=== PATIENT | female | born 1990 | race American Indian/Alaskan Native ===

== ENCOUNTER 2018-11-17 17:36 | Outpatient (CLI) | payer MEDICAID ==
[2018-11-17 17:52] VITALS: BP 121/71
== END 2018-11-17 18:56 | disposition home or self-care (01) ==
LOC: TRG 17:36
PROVIDERS: ATTEND Obstetrics & Gynecology
DX: O47.1 False labor at or after 37 completed weeks of gestation (principal); Z3A.38 38 weeks gestation of pregnancy
CPT/HCPCS: 59025

== ENCOUNTER 2018-11-23 21:45 | Inpatient (IN) | payer MEDICAID ==
[2018-11-23] MEDS ORDERED: AMPICILLIN/NS 2 GM/100 ML 2 GM/100 ML BAG IV ONE (23:38)
[2018-11-23] MEDS ORDERED: BRETHINE SUB-Q PRN (23:38)
[2018-11-23] MEDS ORDERED: STADOL IV PRN (23:38)
[2018-11-23] MEDS ORDERED: SUBLIMAZE IV PRN (23:38)
[2018-11-23] MEDS ORDERED: XYLOCAINE 2% INFILTRATI ONE (23:38)
[2018-11-23] MEDS ORDERED: BRETHINE IVP PRN (23:38)
[2018-11-23] MEDS ORDERED: MINERAL OIL PO PRN (23:38)
[2018-11-23] MEDS ORDERED: NARCAN 0.4 MG/1 ML IV PRN (23:38)
[2018-11-23] MEDS ORDERED: LACTATED RINGERS 1,000 ML ONE (23:38)
[2018-11-23] MEDS ORDERED: ZOFRAN IV PRN (23:38)
[2018-11-23] MEDS ORDERED: LACTATED RINGERS 1,000 ML IV SCH (23:45)
[2018-11-23] MEDS ORDERED: PITOCin/NS 30 UNIT/500ML 30 UNITS/500 ML BAG IV SCH ×2 (23:45)
[2018-11-23] MEDS ORDERED: PITOCin/NS 20 UNIT/1000ML DRIP 20 UNITS/1,000 ML BAG IV SCH (23:45)
[2018-11-24 00:36] LABS: Hematocrit 28.7 % (30.3-42.9); Hemoglobin 9.7 gm/dl (10.1-14.3); Mean Corpuscular HGB Conc 34 % (30-34); Mean Corpuscular Volume 72 fl (79-97); Platelet Count 178 K/mm3 (140-440); Red Blood Count 3.97 M/mm3 (3.65-5.03); Red Cell Distribution Width 14.6 % (13.2-15.2)
[2018-11-24] MEDS ORDERED: AMPICILLIN/NS 1 GM/50 ML 1 GM/50 ML BAG IV SCH (03:39)
--- NOTE | 2018-11-24 08:46 | History and Physical Report ---
History of Present Illness Date of examination: 11/24/18 Date of admission: 11/23/18 21:45 Chief complaint: Pt presents for IOL for IUGR History of present illness: Pt is a 28 yo at 39.4 weeks, with IUGR. She received care with [facility] since the first trimester. Her has been complicated by IUGR, EFW 12.8%ile. She is A positive, GBS negative. AROM by Dr. Parson at 0700 and Pitocin has been titrated, now at 4. Her cervix is 3/60/-2 as of 0700 today. Past History Past Medical History: no pertinent history Past Surgical History: no surgical history Family/Genetic History: none Social history: no significant social history - Obstetrical History Expected Date of Delivery: 11/27/18 Actual Gestation: 39 Week(s) 4 Day(s) : 2 Para: 1 Hx # Term Pregnancies: 1 Number of Living Children: 1 Medications and Allergies Allergies Allergy/AdvReac Type Severity Reaction Status Date / Time No Known Allergies Allergy Verified 11/17/18 17:42 Home Medications Medication Instructions Recorded Confirmed Last Taken Type No Known Home Medications [No 11/17/18 11/17/18 Unknown History Reported Home Medications] Active Meds: Active Medications Butorphanol Tartrate (Stadol) 2 mg IV Q2H PRN PRN Reason: Pain , Severe (7-10) Ephedrine Sulfate (Ephedrine Sulfate) 10 mg IV Q2M PRN PRN Reason: Hypotension Fentanyl (Sublimaze) 100 mcg IV Q2H PRN PRN Reason: Labor Pain Oxytocin/Sodium Chloride (Pitocin/Ns 20 Unit/1000ml Drip) 20 units in 1,000 mls @ 125 mls/hr IV DIRECT THOMPSON Oxytocin/Sodium Chloride (Pitocin/Ns 30 Unit/500ml) 30 units in 500 mls @ 1 mls/hr IV TITR THOMPSON; Protocol Oxytocin/Sodium Chloride (Pitocin/Ns 30 Unit/500ml) 30 units in 500 mls @ 2 mls/hr IV TITR THOMPSON; Protocol Last Admin: 11/24/18 02:30 Dose: 2 ml/hr, 2 mls/hr Documented by: Lactated Ringer's (Lactated Ringers) 1,000 mls @ 125 mls/hr IV DIRECT THOMPSON Mineral Oil (Mineral Oil) 30 ml PO QHS PRN PRN Reason: Constipation Naloxone HCl (Narcan 0.4 Mg/1 Ml) 0.1 mg IV Q2MIN PRN PRN Reason: Res Rate </= 8 or 02 SAT < 92% Ondansetron HCl (Zofran) 4 mg IV Q8H PRN PRN Reason: Nausea And Vomiting Terbutaline Sulfate (Brethine) 0.25 mg SUB-Q ONCE PRN PRN Reason: Hyperstimulation/Hypertonicity Terbutaline Sulfate (Brethine) 0.25 mg IVP ONCE PRN PRN Reason: Hyperstimulation/Hypertonicity Review of Systems All systems: negative Gastrointestinal: abdominal pain (due to contractions) - Vital Signs Vital signs: Vital Signs Pulse BP 86 125/70 11/23/18 22:09 11/23/18 22:09 Temp Pulse Resp BP Pulse Ox 97.7 F 75 16 115/73 88 11/24/18 05:00 11/24/18 07:47 11/24/18 05:00 11/24/18 07:47 11/24/18 07:46 - Physical Exam Breasts: Positive: deferred Cardiovascular: Regular rate, Normal S1, Normal S2 Lungs: Positive: Clear to auscultation, Normal air movement Abdomen: Positive: normal appearance, soft Uterus: Positive: normal size, normal contour Extremities: Positive: normal - Obstetrical FHR: auscultation normal, category 1 Uterine Contraction Monitor Mode: External Results Result Diagrams: 11/23/18 23:08 Abnormal lab results 11/23/18 Range/Units 23:08 Hgb 9.7 L (10.1-14.3) gm/dl Hct 28.7 L (30.3-42.9) % MCV 72 L (79-97) fl MCH 24 L (28-32) pg All other labs normal. Assessment and Plan A: 1. IUGR at term 2. Membranes ruptured x1.5 hours, clear, GBS negative, afebrile 3. Cervix favorable for induction P: Continue Pitocin titration. Pt planning on epidural. Anticipate .
--- NOTE | 2018-11-24 09:03 | Anesthesia Consultation ---
Anesthesia Consult and Med Hx Date of service: 11/24/18 - Airway Anesthetic Teeth Evaluation: Good ROM Head & Neck: Adequate Mental/Hyoid Distance: Adequate Mallampati Class: Class II Intubation Access Assessment: Good - Pulmonary Exam CTA: Yes - Cardiac Exam Cardiac Exam: RRR - Pre-Operative Health Status ASA Pre-Surgery Classification: ASA2 Proposed Anesthetic Plan: Epidural - Pulmonary Hx Asthma: No COPD: No Hx Pneumonia: No - Cardiovascular System Hx Hypertension: No - Central Nervous System Hx Seizures: No Hx Psychiatric Problems: No - Endocrine Hx Renal Disease: No Hx End Stage Renal Disease: No Hx Hypothyroidism: No Hx Hyperthyroidism: No - Hematic Hx Anemia: No Hx Sickle Cell Disease: No - Other Systems Hx Alcohol Use: No
[2018-11-24] MEDS ORDERED: MARCAINE 0.25% INFILTRATI ONE ×2 (09:17→14:37)
[2018-11-24] MEDS ORDERED: NARCAN 2 MG/2 ML IV PRN (09:30)
[2018-11-24] MEDS ORDERED: fentaNYL-BUPIV 2 MCG/ML-0.125% 200 MCG/100 ML BAG EPIDURAL SCH (10:00)
--- NOTE | 2018-11-24 15:54 | Procedure Note ---
OB Delivery Note - Delivery Date of Delivery: 11/24/18 Estimated blood loss: 200cc - Vaginal Delivery presentation: vertex Delivery position: OA Intrapartum events: prolonged 2nd stage>2.5hr Delivery induction: oxytocin Delivery augmentation: rupture of membranes Delivery monitor: external FHT, external uterine Route of delivery: Delivery placenta: spontaneous Delivery cord: 3 umbilical vessels Episiotomy: none Delivery laceration: none Anesthesia: epidural Delivery comments: Maternal effort resulted in of viable female infant. Head delivered OA, restituted LOT, shoulders followed easily with gentle traction. Cord clamped and cut by FOB. Placenta followed <10 minutes after , spontaneously expressed. EBL 200mL, Pitocin administered IV after delivery of placenta. Placenta delivered [place], intact. No lacerations noted. Infant to maternal chest.
[2018-11-24] MEDS ORDERED: LANSINOH TP PRN (17:45)
[2018-11-24] MEDS ORDERED: PHENERGAN PO PRN (17:45)
[2018-11-24] MEDS ORDERED: MILK OF MAGNESIA PO PRN (17:45)
[2018-11-24] MEDS ORDERED: TUCKS PAD TP PRN (17:45)
[2018-11-24] MEDS ORDERED: TYLENOL PO PRN (17:45)
[2018-11-24] MEDS ORDERED: ZOFRAN IV PRN (17:45)
[2018-11-24] MEDS ORDERED: SODIUM CHLORIDE FLUSH SYRINGE 10 ML IV NR (17:45)
[2018-11-24] MEDS ORDERED: BENADRYL PO PRN (17:45)
[2018-11-24] MEDS ORDERED: PHENERGAN PR PRN (17:45)
[2018-11-24] MEDS ORDERED: DULCOLAX PR PRN (17:45)
[2018-11-24] MEDS: IBUPROFEN PO SCH (23:13)
[2018-11-25] MEDS: IBUPROFEN PO SCH ×5 (05:25→23:39)
[2018-11-25 06:11] LABS: Hematocrit 24.4 % (30.3-42.9); Hemoglobin 7.9 gm/dl (10.1-14.3)
--- NOTE | 2018-11-25 12:08 | Progress Note ---
Assessment and Plan A: 1. PPD1 s/p , recovering well 2. Vital signs stable 3. Iron deficiency anemia P: Initiate iron supplementation. Anticipate d/c to home tomorrow. Subjective - Subjective Interval history: Pt is PPD1 s/p of viable at 39.4 wks EGA, IOL for IUGR. is doing well. Patient reports: appetite normal, voiding normally, pain well controlled, ambulating normally [place]: doing well Objective - Vital Signs Latest vital signs: Vital Signs Temp Pulse Resp BP BP Pulse Ox 11/25/18 08:09 97.6 F 71 18 112/73 97 11/25/18 01:45 98.1 F 68 20 122/74 98 11/24/18 21:35 97.9 F 70 20 117/75 98 11/24/18 16:47 66 112/66 11/24/18 16:32 67 119/82 11/24/18 16:21 67 122/58 11/24/18 16:01 75 114/79 11/24/18 16:00 98.1 F 18 11/24/18 15:47 75 114/71 11/24/18 15:38 150 H 120/56 11/24/18 15:30 98 H 90 11/24/18 15:28 89 100 11/24/18 15:23 97 H 100 11/24/18 15:21 97 H 92 11/24/18 15:18 101 H 100 11/24/18 15:16 89 92 11/24/18 15:13 93 H 100 11/24/18 15:10 66 121/78 11/24/18 15:08 75 100 11/24/18 15:05 73 120/79 11/24/18 15:03 76 100 11/24/18 15:01 70 121/68 11/24/18 14:58 69 100 11/24/18 14:55 68 18 125/75 11/24/18 14:53 69 100 11/24/18 14:51 68 118/78 11/24/18 14:48 91 H 100 11/24/18 14:46 75 119/72 11/24/18 14:43 68 99 11/24/18 14:39 88 113/69 94 11/24/18 14:38 93 11/24/18 14:33 72 117/73 98 11/24/18 14:28 71 98 11/24/18 14:23 77 98 11/24/18 14:17 70 130/69 11/24/18 14:01 83 124/74 11/24/18 14:00 98.0 F 20 11/24/18 13:47 75 139/60 11/24/18 13:32 93 H 96 11/24/18 13:27 109 H 99 11/24/18 13:24 67 84 11/24/18 13:22 82 100 11/24/18 13:16 81 115/82 11/24/18 13:00 74 100 11/24/18 12:55 73 18 100 11/24/18 12:50 74 100 11/24/18 12:46 72 107/59 11/24/18 12:45 76 97 11/24/18 12:40 120 H 85 11/24/18 12:37 91 H 87 11/24/18 12:35 68 77 L 11/24/18 12:32 80 128/62 11/24/18 12:31 73 72 L 11/24/18 12:30 76 100 11/24/18 12:25 87 99 11/24/18 12:20 84 99 11/24/18 12:18 92 H 86 11/24/18 12:17 74 124/82 11/24/18 12:14 76 100 11/24/18 12:09 79 100 Intake and Output 11/24/18 11/25/18 11/25/18 23:59 07:59 15:59 Intake Total 120 960 Output Total 900 Balance -900 120 960 Intake: Oral 120 240 Intake, Free Water 720 Output: Urine 900 Void 900 Other: Total, Intake Amount 120 240 Total, Output Amount 500 # Voids Void 1 1 1 - Exam Breasts: Present: deferred Lungs: Present: Normal air movement Abdomen: Present: normal appearance, soft Uterus: Present: normal, firm, fundal height at umbilicus Extremities: Present: normal - Labs Labs: Abnormal lab results 11/25/18 Range/Units 06:01 Hgb 7.9 L (10.1-14.3) gm/dl Hct 24.4 L (30.3-42.9) %
[2018-11-25] MEDS: FEOSOL PO SCH ×2 (12:50→21:50)
--- NOTE | 2018-11-25 13:10 | Discharge Summary ---
Providers - Providers Date of Admission: 11/23/18 21:45 Date of discharge: 11/26/18 Attending physician: VILMA PHILIPPE Primary care physician: VILMA PHILIPPE Hospitalization Reason for admission: induction of labor (IUGR) Delivery: Episiotomy: none Laceration: none Other procedures: none complications: none Discharge diagnosis: IUP at term delivered Condition at discharge: Good Disposition: DC-01 TO HOME OR SELFCARE Plan - Discharge Medications Prescriptions: Ferrous Sulfate [Feosol 325 MG tab] 325 mg PO TID 30 Days #90 tablet Ibuprofen [Motrin 600 MG tab] 800 mg PO Q8H 30 Days #60 tablet Glycerin/Witch Orly Pad [Tucks Pad] 1 each TP PRN PRN #1 box PRN Reason: Hemorrhoid/cleansing/soothing - Provider Discharge Summary Activity: no sex for 6 weeks, no heavy lifting 4 weeks, no strenuous exercise Diet: routine Instructions: routine Additional instructions: [] Smoking cessation referral if applicable(refer to patient education folder for contact #) [] Refer to [facility] Booklet Call your doctor immediately for: * Fever > 100.5 * Heavy vaginal bleeding ( >1 pad per hour) * Severe persistent headache * Shortness of breath * Reddened, hot, painful area to leg or breast * Drainage or odor from incision. * Keep incision clean and dry at all times and follow doctor's instructions regarding bathing/showering - Follow up plan Follow up: VILMA PHILIPPE MD [Primary Care Provider] - 6 Weeks (Please call to schedule an appointment in 4-6 weeks)
--- NOTE | 2018-11-25 14:34 | Post Anesthesia Evaluation ---
- Post Anesthesia Evaluation Patient Participated: Yes Airway Patent: Yes Stable Respiratory Function: Yes Nausea/Vomiting: No Temp > 96.8F: Yes Pain Manageable: Yes Adequeate Hydration: Yes Anesthesia Complications: No Block Receding Appropriately: Yes Patient on Ventilator: No
[2018-11-26] MEDS: IBUPROFEN PO SCH (05:37)
[2018-11-26 13:38] VITALS: BP 124/71
== END 2018-11-26 15:00 | disposition home or self-care (01) | DRG 775 ==
LOC: LD 21:45 → OB 11-24 17:22
PROVIDERS: ADMIT Obstetrics & Gynecology; ATTEND Obstetrics & Gynecology
PROC: 10907ZC Drainage of Amniotic Fluid, Therapeutic from Products of Conception, Via Natural or Artificial Opening (ICD-10-PCS; 2018-11-23)
PROC: 3E033VJ Introduction of Other Hormone into Peripheral Vein, Percutaneous Approach (ICD-10-PCS; 2018-11-23)
PROC: 10E0XZZ Delivery of Products of Conception, External Approach (ICD-10-PCS; principal; 2018-11-24)
PROC: 3E0R3BZ Introduction of Anesthetic Agent into Spinal Canal, Percutaneous Approach (ICD-10-PCS; 2018-11-24)
PROC: 00HU33Z Insertion of Infusion Device into Spinal Canal, Percutaneous Approach (ICD-10-PCS; 2018-11-24)
DX: O36.5930 Maternal care for other known or suspected poor fetal growth, third trimester, not applicable or unspecified (principal); Z3A.39 39 weeks gestation of pregnancy; D50.9 Iron deficiency anemia, unspecified; Z37.0 Single live birth; O99.02 Anemia complicating childbirth; O63.1 Prolonged second stage (of labor)
CPT/HCPCS: 36415; 85014; 85018; 85027; 86592; 86850; 86900; 86901; G0378; J0595; J2590; J7120